=== PATIENT | female | born 1945 | race Caucasian/White ===

== ENCOUNTER 2018-02-10 08:09 | Emergency (ER) | payer MEDICARE, MEDICAID ==
[~2018-02-10] VITALS: Ht 160 cm; Wt 63.0 kg
[~2018-02-10 08:09] MED LIST: ASPI-12 PO; ATOR10TA PO; CLOP75TA15 PO; DAPA1TAB3 PO; INSU100V13 SQ; LEVO112T5 PO; LISI10TA4 PO; LYR75C PO; METF-436 PO; METO25TA6 PO; NORCO10T PO
[2018-02-10 09:31] LABS: BASOPHILS % (AUTO) 0.3 % (0-1); EOSINOPHILS # (AUTO) 0.1 X10'3 (0-0.9); EOSINOPHILS % (AUTO) 1.4 % (0-6); HEMATOCRIT 37.5 % (35.0-45.0); HEMOGLOBIN 12.6 g/dl (12.0-16.0); LYMPHOCYTES # (AUTO) 1.4 X10'3 (1.1-4.8); LYMPHOCYTES % (AUTO) 24.6 % (21-51); MEAN CORPUSCULAR HEMOGLOBIN 29.8 PG (27.0-31.0); MEAN CORPUSCULAR HGB CONC 33.5 % (33.0-36.5); MEAN CORPUSCULAR VOLUME 89.2 FL (78-98); MEAN PLATELET VOLUME 10.2 FL (7.4-10.4); MONOCYTES # (AUTO) 0.3 X10'3 (0-0.9); MONOCYTES % (AUTO) 5.5 % (2-12); NEUTROPHILS # (AUTO) 3.9 X10'3 (1.8-7.7); NEUTROPHILS % (AUTO) 68.2 % (42-75); PLATELET COUNT 179 X10'3 (140-440); RED BLOOD COUNT 4.21 X10'6 (4.20-5.60); RED CELL DISTRIBUTION WIDTH 12.8 % (11.5-14.5); WHITE BLOOD COUNT 5.7 X10'3 (4.5-11.0)
[2018-02-10 09:45] LABS: ALANINE AMINOTRANSFERASE 34 U/L (12-78); ALBUMIN 3.9 G/DL (3.4-5.0); ALBUMIN/GLOBULIN RATIO 1.1 (1.1-1.5); ALKALINE PHOSPHATASE 80 IU/L (46-116); ANION GAP 6 (8-16); ASPARTATE AMINO TRANSFERASE 15 U/L (10-37); BILIRUBIN,TOTAL 0.3 MG/DL (0.1-1.0); BLOOD UREA NITROGEN 29 MG/DL (7-18); BUN/CREATININE RATIO 43.3 (6.6-38.0); CALCIUM 8.7 MG/DL (8.5-10.1); CHLORIDE 102 MMOL/L (99-107); CREATININE 0.67 MG/DL (0.40-0.90); GLUCOSE 144 MG/DL (70-104); PARTIAL THROMBOPLASTIN TIME 26 SECONDS (22-32); POTASSIUM 5.1 MMOL/L (3.5-5.1); PROTHROMBIN TIME 10.1 SECONDS (9.0-12.0); SODIUM 138 MMOL/L (135-145); TOTAL CARBON DIOXIDE 30.3 MMOL/L (24-32); TOTAL PROTEIN 7.5 G/DL (6.4-8.2); eGFR 87 ML/MIN
[2018-02-10 09:49] LABS: TROPONIN I < 0.04 NG/ML (0.0-0.05)
[2018-02-10] MEDS ORDERED: LORA1TAB PO (10:49)
[2018-02-10] MEDS ORDERED: LORazepam 1 MG tablet PO ONE (10:50)
[2018-02-10 11:14] VITALS: BP 186/103
== END 2018-02-10 11:18 | disposition home or self-care (01) ==
LOC: ER 08:10
DX: R53.1 Weakness (principal); F41.9 Anxiety disorder, unspecified; G43.909 Migraine, unspecified, not intractable, without status migrainosus; I25.10 Atherosclerotic heart disease of native coronary artery without angina pectoris; I10 Essential (primary) hypertension; E11.9 Type 2 diabetes mellitus without complications; E03.9 Hypothyroidism, unspecified; G89.29 Other chronic pain; Z98.890 Other specified postprocedural states; Z95.1 Presence of aortocoronary bypass graft; Z79.82 Long term (current) use of aspirin; Z79.899 Other long term (current) drug therapy; Z79.4 Long term (current) use of insulin; Z86.73 Personal history of transient ischemic attack (TIA), and cerebral infarction without residual deficits
CPT/HCPCS: 36415; 70450; 71045; 80053; 82948; 84484; 85025; 85610; 85730; 93005; 99285

== ENCOUNTER 2018-07-04 13:58 | Day surgery (SDC) | payer MEDICARE, MEDICAID ==
[2018-07-01 17:10] LABS: BASOPHILS # (AUTO) 0.1 X10'3 (0-0.2); BASOPHILS % (AUTO) 0.7 % (0-1); EOSINOPHILS # (AUTO) 0.2 X10'3 (0-0.9); EOSINOPHILS % (AUTO) 2.2 % (0-6); HEMATOCRIT 39.5 % (35.0-45.0); HEMOGLOBIN 13.2 g/dl (12.0-16.0); LYMPHOCYTES # (AUTO) 1.9 X10'3 (1.1-4.8); LYMPHOCYTES % (AUTO) 23.5 % (21-51); MEAN CORPUSCULAR HGB CONC 33.5 g/dL (33.0-36.5); MEAN CORPUSCULAR VOLUME 89.5 FL (78-98); MEAN PLATELET VOLUME 9.8 FL (7.4-10.4); MONOCYTES # (AUTO) 0.6 X10'3 (0-0.9); MONOCYTES % (AUTO) 7.1 % (2-12); NEUTROPHILS # (AUTO) 5.5 X10'3 (1.8-7.7); NEUTROPHILS % (AUTO) 66.5 % (42-75); PLATELET COUNT 213 X10'3 (140-440); RED BLOOD COUNT 4.41 X10'6 (4.20-5.60); WHITE BLOOD COUNT 8.3 X10'3 (4.5-11.0)
[2018-07-01 17:18] LABS: ALBUMIN 4.4 G/DL (3.4-5.0); ANION GAP 7 (8-16); BLOOD UREA NITROGEN 29 MG/DL (7-18); BUN/CREATININE RATIO 43.9 (6.6-38.0); CALCIUM 9.1 MG/DL (8.5-10.1); CHLORIDE 103 MMOL/L (99-107); CREATININE 0.66 MG/DL (0.40-0.90); GLUCOSE 133 MG/DL (70-104); SODIUM 139 MMOL/L (135-145); TOTAL CARBON DIOXIDE 28.8 MMOL/L (24-32); eGFR 89 ML/MIN
[2018-07-01 17:25] LABS: PROTHROMBIN TIME 9.7 SECONDS (9.0-12.0)
[2018-07-01 17:26] LABS: PARTIAL THROMBOPLASTIN TIME 26 SECONDS (22-32)
[~2018-07-04] VITALS: Ht 160 cm; Wt 64.3 kg
[2018-07-04] MEDS ORDERED: diphenhydrAMINE 25mg capsule PO ONE (14:20)
[2018-07-04] MEDS ORDERED: normal saline 1000ml 1,000 ML IV SCH (14:20)
[2018-07-04] MEDS ORDERED: LORazepam 0.5 MG tablet PO ONE (14:20)
[2018-07-04] MEDS ORDERED: HYDR-4353 PO (14:42)
[2018-07-04] MEDS ORDERED: ATOR20TA PO (14:42)
[2018-07-04] MEDS ORDERED: LISI-604 PO (14:42)
[2018-07-04] MEDS ORDERED: METO25TA6 PO (14:42)
[2018-07-04] MEDS ORDERED: ASPI-1053 PO (14:42)
[2018-07-04] MEDS ORDERED: INSU100V12 SQ (14:42)
[2018-07-04 14:50] VITALS: BP 122/66
[2018-07-04] MEDS ORDERED: iohexol 350MG/ML 100ml bottle IV ONE (16:06)
[2018-07-04] MEDS ORDERED: LIDOcaine 1% (10mg/ml)w/preservative injection 20ml MDV ONE (16:06)
[2018-07-04] MEDS ORDERED: midazolam 2 mg/2 ml injection ONE (16:06)
[2018-07-04] MEDS ORDERED: fentaNYL/PF 50MCG/1 ML 2ML syringe ONE (16:06)
[2018-07-04] MEDS ORDERED: iohexol 350 MG/ML 50ML vial IV ONE ×2 (17:14→17:17)
[2018-07-04 17:30] VITALS: BP 167/90
[2018-07-04 17:45] VITALS: BP 175/77
[2018-07-04 18:00] VITALS: BP 169/87
[2018-07-04] MEDS ORDERED: OXAZEpam 15mg capsule PO PRN (18:10)
[2018-07-04] MEDS ORDERED: ondansetron/PF 4mg/2ml inj IV PRN (18:10)
[2018-07-04 18:15] VITALS: BP 165/80
[2018-07-04] MEDS ORDERED: HYDROcodone/acetaminophen 10/325mg tab PO PRN (18:15)
[2018-07-04] MEDS ORDERED: proCHLORperazine 10 MG/2 ml inj IV PRN (18:15)
[2018-07-04] MEDS ORDERED: HYDROcodone/acetaminophen 5mg/325mg tablet PO PRN (18:15)
[2018-07-04 18:43] VITALS: BP 165/90
== END 2018-07-04 19:00 | disposition home or self-care (01) ==
LOC: SSTAY O 13:58
PROVIDERS: ATTEND Internal Medicine Interventional Cardiology
DX: I25.810 Atherosclerosis of coronary artery bypass graft(s) without angina pectoris (principal); I10 Essential (primary) hypertension; E78.00 Pure hypercholesterolemia, unspecified; I65.23 Occlusion and stenosis of bilateral carotid arteries; E11.9 Type 2 diabetes mellitus without complications; Z79.84 Long term (current) use of oral hypoglycemic drugs; Z95.1 Presence of aortocoronary bypass graft
CPT/HCPCS: 36415; 80048; 85025; 85610; 85730; 93005; 93459; 93567; 99152; 99153; A6257; J1644; J2001; J2250; J3010; J7030; Q0163; Q9967; A4620; C1760; C1769

== ENCOUNTER 2018-12-28 15:39 | Emergency (ER) | payer MEDICARE, MEDICAID ==
[~2018-12-28] VITALS: Ht 160 cm; Wt 64.3 kg
[~2018-12-28 15:39] MED LIST changes: +ASPI-1053 PO; -ASPI-12 PO; -ATOR10TA PO; +ATOR20TA PO; -CLOP75TA15 PO; +HYDR-4353 PO; +INSU100V12 SQ; +LISI-604 PO; -LISI10TA4 PO; -METF-436 PO
[2018-12-28 16:10] LABS: CLARITY,URINE SLIGHTLY CLOUDY (Clear); COLOR,URINE YELLOW (Yellow); GLUCOSE, URINE >=1000 mg/dl (Neg); KETONES,URINE NEGATIVE (Neg); LEUKOCYTE ESTERASE ,URINE NEGATIVE (Neg); NITRITES, URINE NEGATIVE (Neg); OCCULT BLOOD,URINE NEGATIVE (Neg); PH,URINE 5.5 (4.8-8.0); PROTEIN,URINE NEGATIVE (Neg); UROBILINOGEN,URINE 0.2 E.U/dL (0.2-1.0)
[2018-12-28 16:15] LABS: UA COLLECTION TYPE CLN CATCH MIDSTREAM
[2018-12-28 16:26] LABS: RBC,URINE 0-2 /HPF (0-2)
[2018-12-28 16:27] LABS: BACTERIA,URINE FEW /HPF (Neg); SQUAMOUS EPITHELIAL CELL,UR FEW /LPF (FEW)
[2018-12-28 16:35] LABS: YEAST FEW /HPF (NEGATIVE)
[2018-12-28] MEDS ORDERED: CYCL-1 PO (18:21)
--- NOTE | 2018-12-31 16:38 | NUR ---
PT CALLED AND INFORMED THAT URINE CULTURE WAS + FOR UTI AND THAT AN ABX WOULD BE CALLED IN FOR HER. PT REQUESTED THAT RX BE CALLED TO [facility]. BACTRIM DS 1 PO BID X10 DAYS CALLED TO [facility] REQUESTED.
== END 2018-12-28 18:35 | disposition home or self-care (01) ==
LOC: ER 15:39
DX: M54.6 Pain in thoracic spine (principal); G43.909 Migraine, unspecified, not intractable, without status migrainosus; I25.10 Atherosclerotic heart disease of native coronary artery without angina pectoris; I10 Essential (primary) hypertension; E11.9 Type 2 diabetes mellitus without complications; E03.9 Hypothyroidism, unspecified; G89.29 Other chronic pain; Z95.1 Presence of aortocoronary bypass graft; Z98.890 Other specified postprocedural states; Z79.82 Long term (current) use of aspirin; Z79.899 Other long term (current) drug therapy; Z79.4 Long term (current) use of insulin
CPT/HCPCS: 74176; 81001; 87077; 87088; 87186; 99284

== ENCOUNTER 2022-02-17 12:28 | Day surgery (SDC) | payer MEDICARE, MEDICAID ==
[2022-02-12 12:51] LABS: BASOPHILS # (AUTO) 0.1 X10'3 (0-0.2); EOSINOPHILS # (AUTO) 0.1 X10'3 (0-0.9); EOSINOPHILS % (AUTO) 1.2 % (0-6); HEMATOCRIT 36.4 % (35.0-45.0); HEMOGLOBIN 11.9 g/dl (12.0-16.0); LYMPHOCYTES # (AUTO) 1.5 X10'3 (1.1-4.8); LYMPHOCYTES % (AUTO) 20.4 % (21-51); MEAN CORPUSCULAR HEMOGLOBIN 28.7 PG (27.0-31.0); MEAN CORPUSCULAR HGB CONC 32.8 g/dL (33.0-36.5); MEAN CORPUSCULAR VOLUME 87.6 FL (78-98); MEAN PLATELET VOLUME 9.4 FL (7.4-10.4); MONOCYTES # (AUTO) 0.6 X10'3 (0-0.9); MONOCYTES % (AUTO) 7.8 % (2-12); NEUTROPHILS % (AUTO) 69.6 % (42-75); PLATELET COUNT 196 X10'3 (140-440); RED BLOOD COUNT 4.16 X10'6 (4.20-5.60); RED CELL DISTRIBUTION WIDTH 13.8 % (11.5-14.5); WHITE BLOOD COUNT 7.2 X10'3 (4.5-11.0)
[2022-02-12 13:02] LABS: APTT 26 SECONDS (22-32)
[2022-02-12 13:05] LABS: ALBUMIN 3.9 G/DL (3.4-5.0); ANION GAP 7 (8-16); BLOOD UREA NITROGEN 20 MG/DL (7-18); BUN/CREATININE RATIO 29.9 (6.6-38.0); CALCIUM 9.2 MG/DL (8.5-10.1); CHLORIDE 102 MMOL/L (99-107); CHOL/HDL RATIO 2.2 (0.00-4.99); CHOLESTEROL 154 MG/DL (0-200); CREATININE 0.67 MG/DL (0.40-0.90); GLUCOSE 172 MG/DL (70-104); HDL CHOLESTEROL 69 MG/DL (35-60); LDL CHOLESTEROL 66 MG/DL (50-100); POTASSIUM 4.3 MMOL/L (3.5-5.1); SODIUM 138 MMOL/L (135-145); TOTAL CARBON DIOXIDE 29.4 MMOL/L (24-32); TRIGLYCERIDES 170 MG/DL (20-135); eGFR 86 ML/MIN
[2022-02-17] VITALS (9 sets, daily range): BP systolic 135–208; BP diastolic 52–106
[~2022-02-17] VITALS: Ht 160 cm; Wt 61.1 kg
[~2022-02-17 12:28] MED LIST changes: +CYCL-1 PO; -LISI-604 PO; +LISI5TAB22 PO; +LOP25T PO; -METO25TA6 PO
[2022-02-17] MEDS ORDERED: diphenhydrAMINE 25mg capsule PO PRN (12:45)
[2022-02-17] MEDS ORDERED: normal saline 1,000 ML IV SCH (12:45)
[2022-02-17] MEDS ORDERED: LORazepam 0.5 MG tablet PO PRN (12:45)
[2022-02-17] MEDS ORDERED: LEVO100T9 PO (12:55)
[2022-02-17] MEDS ORDERED: PREG75CA75 PO (12:57)
[2022-02-17] MEDS ORDERED: fentaNYL/PF 50MCG/1 ML 2ML syringe ONE (15:10)
[2022-02-17] MEDS ORDERED: midazolam 1 mg/ML 2ml injection ONE (15:10)
[2022-02-17] MEDS ORDERED: iohexol 350MG/ML 100ml bottle IV ONE ×2 (15:10→15:51)
[2022-02-17] MEDS ORDERED: LIDOcaine 1% 30ml preserv. free vial ONE (15:10)
[2022-02-17] MEDS ORDERED: hydrALAZINE 20mg/ml inj. IV ONE (15:45)
[2022-02-17] MEDS ORDERED: HYDROcodone/acetaminophen 5mg/325mg tablet PO PRN (16:40)
[2022-02-17] MEDS ORDERED: HYDROcodone/acetaminophen 10/325mg tab PO PRN (16:40)
[2022-02-17] MEDS ORDERED: proCHLORperazine 10 MG/2 ml inj IV PRN (16:40)
[2022-02-17] MEDS ORDERED: ondansetron/PF 4mg/2ml inj IV PRN (16:40)
[2022-02-17] MEDS ORDERED: OXAZEpam 15mg capsule PO PRN (16:40)
--- NOTE | 2022-02-17 17:45 | NUR ---
Leo DC 1300ml clear yellow urine emptied.
[2022-02-18] MEDS ORDERED: pneumococcal 23-VAL P-sac vacc 25 mcg/0.5ml vial IMVAC ONE (12:00)
== END 2022-02-17 19:15 | disposition home or self-care (01) ==
LOC: SSTAY O 12:28
PROVIDERS: ATTEND Student in an Organized Health Care Education/Training Program
DX: R94.39 Abnormal result of other cardiovascular function study (principal); I25.810 Atherosclerosis of coronary artery bypass graft(s) without angina pectoris; I25.10 Atherosclerotic heart disease of native coronary artery without angina pectoris; I10 Essential (primary) hypertension; E03.9 Hypothyroidism, unspecified; Z79.01 Long term (current) use of anticoagulants; Z79.899 Other long term (current) drug therapy; G62.9 Polyneuropathy, unspecified; E78.5 Hyperlipidemia, unspecified; E11.9 Type 2 diabetes mellitus without complications; Z79.82 Long term (current) use of aspirin
CPT/HCPCS: 36415; 80048; 80061; 82948; 85025; 85610; 85730; 93005; 93459; 93567; 99152; 99153; C1769; C1894; J0360; J1644; J2250; J3010; J3490; J7030; Q0163; Q9967; 90732; A4314; A4615; A6258

== ENCOUNTER 2023-05-03 14:36 | Emergency (ER) | payer MEDICARE, MEDICAID ==
[~2023-05-03] VITALS: Ht 154.9 cm; Wt 57.7 kg
[~2023-05-03 14:36] MED LIST changes: -CYCL-1 PO; -INSU100V13 SQ; +LEVO100T9 PO; -LEVO112T5 PO; -LYR75C PO; -NORCO10T PO; +PREG75CA76 PO
[2023-05-03] MEDS ORDERED: aspirin 81mg tab.chew PO ONE (15:20)
[2023-05-03] MEDS ORDERED: HYDROcodone/acetaminophen 10/325mg tab PO ONE ×2 (15:20→18:30)
[2023-05-03] MEDS ORDERED: ondansetron/PF 4mg/2ml inj IV ONE (15:20)
[2023-05-03 15:26] VITALS: TEMP 98.5
[2023-05-03 17:39] LABS: BASOPHILS # (AUTO) 0.1 X10'3 (0-0.2); EOSINOPHILS # (AUTO) 0.1 X10'3 (0-0.9); EOSINOPHILS % (AUTO) 1.8 % (0-6); HEMATOCRIT 38.2 % (35.0-45.0); HEMOGLOBIN 12.7 g/dl (12.0-16.0); LYMPHOCYTES # (AUTO) 0.9 X10'3 (1.1-4.8); LYMPHOCYTES % (AUTO) 11.5 % (21-51); MEAN CORPUSCULAR HEMOGLOBIN 29.8 PG (27.0-31.0); MEAN CORPUSCULAR HGB CONC 33.3 g/dL (33.0-36.5); MEAN CORPUSCULAR VOLUME 89.4 FL (78-98); MEAN PLATELET VOLUME 9.5 FL (7.4-10.4); MONOCYTES # (AUTO) 0.5 X10'3 (0-0.9); MONOCYTES % (AUTO) 6.6 % (2-12); NEUTROPHILS # (AUTO) 6.3 X10'3 (1.8-7.7); NEUTROPHILS % (AUTO) 79.1 % (42-75); PLATELET COUNT 191 X10'3 (140-440); RED BLOOD COUNT 4.27 X10'6 (4.20-5.60); RED CELL DISTRIBUTION WIDTH 13.7 % (11.5-14.5); WHITE BLOOD COUNT 7.9 X10'3 (4.5-11.0)
[2023-05-03 17:54] LABS: ALANINE AMINOTRANSFERASE 24 U/L (12-78); ALBUMIN 4.4 G/DL (3.4-5.0); ALBUMIN/GLOBULIN RATIO 1.3 (1.1-1.5); ALKALINE PHOSPHATASE 60 IU/L (46-116); ANION GAP 13 (8-16); ASPARTATE AMINO TRANSFERASE 16 U/L (10-37); BILIRUBIN,TOTAL 0.4 MG/DL (0.1-1.0); BLOOD UREA NITROGEN 23 MG/DL (7-18); BUN/CREATININE RATIO 29.5 (10.0-20.0); CALCIUM 9.6 MG/DL (8.5-10.1); CHLORIDE 104 MMOL/L (99-107); CREATININE 0.78 MG/DL (0.40-0.90); GLUCOSE 153 MG/DL (70-104); SODIUM 143 MMOL/L (135-145); TOTAL CARBON DIOXIDE 26.5 MMOL/L (24-32); TOTAL PROTEIN 7.7 G/DL (6.4-8.2); eCRCL 47 ML/MIN; eGFR 72 ML/MIN
[2023-05-03 18:05] LABS: LIPASE 35 U/L (16-77); PRO BRAIN NATRIURETIC PEPTIDE 485 PG/ML (0-450)
[2023-05-03] MEDS ORDERED: ketorolac trometh. 30mg/ml inj. IV ONE (18:20)
[2023-05-03] MEDS ORDERED: lisinopril 10 MG tablet PO ONE (18:30)
[2023-05-03] MEDS ORDERED: HYDR-3973 PO (18:32)
[2023-05-03] MEDS ORDERED: ONDA4TAB12 PO (18:32)
[2023-05-03 19:07] VITALS: BP 174/90; PULSE 94; RESP 18; O2SAT 98
== END 2023-05-03 19:12 | disposition home or self-care (01) ==
LOC: ER 14:36
DX: M54.50 Low back pain, unspecified (principal); G89.29 Other chronic pain; F19.20 Other psychoactive substance dependence, uncomplicated; G43.909 Migraine, unspecified, not intractable, without status migrainosus; I10 Essential (primary) hypertension; E11.9 Type 2 diabetes mellitus without complications; E03.9 Hypothyroidism, unspecified; Z79.82 Long term (current) use of aspirin; Z79.84 Long term (current) use of oral hypoglycemic drugs; Z79.899 Other long term (current) drug therapy
CPT/HCPCS: 36415; 70450; 71045; 80053; 83690; 83880; 84484; 85025; 93005; 96374; 99285; J1885

== ENCOUNTER 2024-11-08 19:20 | Emergency (ER) | payer MEDICARE, MEDICAID ==
[~2024-11-08] VITALS: Ht 154.9 cm; Wt 56.0 kg
[~2024-11-08 19:20] MED LIST changes: +ONDA-243 PO
[2024-11-08 19:30] VITALS: TEMP 98
[2024-11-08 21:02] VITALS: BP 165/67; PULSE 60; O2SAT 98
--- NOTE | 2024-11-08 21:41 | Physician Documentation ---
History of Present Illness ~ Chief Complaint: Back Pain Stated Complaint: BACK PAIN Time Seen by MD: 21:30 Primary Medical Doctor: antonette ONTIVEROS Patient presents to the emergency room requesting pain medication. She has long history of chronic back pain and takes [place] shows and Lyrica regularly. She endorses that she took too much and ran out of her pain medicines 1-2 days to early. She did speak with her doctor regarding this who refused to fill her medications until that has time to fill her medication. Refused IV Tylenol in route. She reports that she has been on opioid medications for a proximally 20 years. Medication Reconciliation Allergies: Coded Allergies: No Known Allergies (Unverified , 11/08/24) Scheduled Aspirin (Abel Chewable), 81 MG PO DAILY, (Reported) Atorvastatin Calcium* (Lipitor*), 1 TABLET PO DAILY, (Reported) Dapagliflozin/Metformin HCl (Xigduo Xr 5 mg-1,000 mg Tablet), 1 TAB PO QAM, (Reported) Hydrocodone Bit/Acetaminophen ([place] 10-325 Tablet), 1-2 TAB PO Q4HPRN, (Reported) Insulin Detemir (Levemir), 15 UNIT SQ HS, (Reported) Levothyroxine Sodium (Levothyroxine Sodium), 1 TAB PO DAILY, (Reported) Lisinopril (Lisinopril), 1 TAB PO DAILY, (Reported) Metoprolol Tartrate* (Lopressor tablet*), 0.5 TAB PO Q12H, (Reported) Pregabalin (Pregabalin), 1 CAP PO BID, (Reported) Scheduled PRN ONDANSETRON ODT 4mg tablet (Ondansetron Odt), 1 TAB PO Q6H PRN PRN for nausea/vomiting Past Medical History Past Medical History: Migraine, Coronary Artery Disease, Hypertension, UTI, Diabetes, Hypothyroidism, Chronic Pain, Chronic Back Pain Past Surgical History: brain surgery, coronary bypass surgery, orthopedic surgeries, other Patient History: (DM Type 2) Diabetes mellitus type 2 Alcohol Use: None Drug Use: none Lives with: Alone Lives In: Home Occupation: retired Review of Systems ROS All review of systems negative except as per HPI Physical Exam Physical Exam Vital Signs: Temperature: 98.0, Source: Oral, Heart Rate: 60, Respiratory Rate: 17, BP: 165/67, Pulse Oximetry: 98, Weight: 56.000 Oxygen Flow Rate: 0 Physical Exam General: Patient is awake, alert, oriented x4 in no acute distress Head: Normocephalic and atraumatic. Eyes: Conjunctival normal. EOMI. PERRL. ENT: Mucous membranes moist. Neck: Supple, trachea is midline. Chest: Clear to auscultation bilaterally without rales, rhonchi, or wheezes. There is no accessory muscle use or retractions. Cardiac: RRR without murmurs, gallops, or rubs. Neuro: Cranial nerves II-XII grossly intact. No focal neuro deficits. Patient ambulating without difficulty. Progress Results/Orders Results/Orders Vital Signs 11/08/24 11/08/24 11/08/24 19:30 20:29 21:02 Temp 98.0 Pulse 78 78 60 Resp 17 16 17 B/P (MAP) 202/94 158/67 (97) 165/67 (99) Pulse Ox 99 98 98 O2 Flow Rate 0 0 0 Medical Decision Making Findings Patient presents to the emergency room with acute on chronic pain. No traumas or falls and he had not feel additional imaging or emergent labs are necessary. We will treat her pain acutely. Departure Disposition: HOME / SELF CARE / HOMELESS Impression: Primary Impression: Chronic back pain Condition: Stable Discharge Instructions: Chronic Back Pain Referrals: NO PRIMARY CARE PROVIDER (PCP) Signature Scribe Signature: No scribe Attestation: The note accurately reflects work and decisions made by me.Neil Oglesby MD 11/08/24 21:41 NEIL OGLESBY MD Nov 08, 2024 21:41
[2024-11-08 22:24] VITALS: RESP 19
[2024-11-08] MEDS: HYDROcodone/acetaminophen 10/325mg tab PO ONE (22:24)
== END 2024-11-08 22:33 | disposition home or self-care (01) ==
LOC: ER 19:21
DX: G89.29 Other chronic pain (principal); M54.9 Dorsalgia, unspecified; E03.9 Hypothyroidism, unspecified; E11.9 Type 2 diabetes mellitus without complications; I10 Essential (primary) hypertension; I25.10 Atherosclerotic heart disease of native coronary artery without angina pectoris; G43.909 Migraine, unspecified, not intractable, without status migrainosus; Z95.1 Presence of aortocoronary bypass graft; Z79.82 Long term (current) use of aspirin
CPT/HCPCS: 99284